=== PATIENT | male | born 1980 | race Caucasian/White ===

== ENCOUNTER 2020-07-29 20:01 | Inpatient (IN) | payer MEDICAID, OTHER ==
--- NOTE | 2020-07-29 20:11 | ED ---
General Adult HPI - General Chief complaint: Psychiatric Symptoms Stated complaint: mental health Time Seen by Provider: 07/29/20 20:09 Source: patient, police Mode of arrival: ambulatory - History of Present Illness Initial comments: Patient brought to the ED by police for evaluation. Patient states that his filed for divorce a couple of days ago, and he states that he has felt depressed and has had suicidal ideations ever since then. Patient states that he has had thoughts of hanging himself, but he denies suicidal attempt. Patient has been petitioned. Patient denies psychiatric history. Patient admits to smoking marijuana fairly regularly, and he states that he did smoke some marijuana today. Patient denies any other illicit drug use. Patient denies alcohol use. Patient denies trauma or injury, medication abuse or overdose, homicidal ideations, hallucinations, any pain, dyspnea, dizziness, fever or chills, nausea or vomiting, or any other symptoms or complaints. - Related Data Home Medications Medication Instructions Recorded Confirmed No Known Home Medications 07/29/20 07/29/20 Allergies Allergy/AdvReac Type Severity Reaction Status Date / Time Tetanus Vaccines and Toxoid Allergy Rash/Hives Verified 07/29/20 21:19 Review of Systems ROS Statement: Those systems with pertinent positive or pertinent negative responses have been documented in the HPI. ROS Other: All systems not noted in ROS Statement are negative. Past Medical History Past Medical History: Deep Vein Thrombosis (DVT) History of Any Multi-Drug Resistant Organisms: None Reported Past Surgical History: No Surgical Hx Reported Past Psychological History: No Psychological Hx Reported Smoking Status: Former smoker Past Alcohol Use History: None Reported Past Drug Use History: Marijuana General Exam Limitations: no limitations General appearance: alert, in no apparent distress Head exam: Present: atraumatic, normocephalic Eye exam: Present: normal appearance, EOMI ENT exam: Present: mucous membranes moist Neck exam: Present: other (Trachea is in midline) Respiratory exam: Present: normal lung sounds bilaterally. Absent: respiratory distress, wheezes, rales, rhonchi, stridor Cardiovascular Exam: Present: regular rate, normal rhythm, normal heart sounds, other (Normal radial pulses bilaterally) GI/Abdominal exam: Present: soft. Absent: distended, tenderness, guarding Extremities exam: Absent: tenderness, pedal edema Neurological exam: Present: alert, oriented X3. Absent: motor sensory deficit Psychiatric exam: Present: depressed Skin exam: Present: warm, dry, intact, normal color Course Vital Signs 07/29/20 20:06 Temperature 98.7 F Pulse Rate 84 Respiratory 18 Rate Blood Pressure 116/99 O2 Sat by Pulse 98 Oximetry Medical Decision Making - Medical Decision Making Patient has been placed by EPS nurse at the psychiatric unit upstairs. - Lab Data Lab Results 07/29/20 Range/Units 21:21 Coronavirus (PCR) Not Detected (Not Detectd) Disposition Clinical Impression: Suicidal ideation Disposition: TRANSFER TO PSYCH HOSP/UNIT Condition: Stable Is patient prescribed a controlled substance at d/c from ED?: No Time of Disposition: 22:28
[2020-07-29] MEDS ORDERED: MAG HYDROX/AL HYDROX/SIMETH 30 ML CUP PO PRN (22:23)
[2020-07-29] MEDS ORDERED: ACETAMINOPHEN TAB 325 MG TAB PO PRN (22:23)
[2020-07-29] MEDS ORDERED: LORazepam 1 MG TAB PO PRN (22:23)
[2020-07-29] MEDS ORDERED: MAGNESIUM HYDROXIDE 2,400 MG/10 ML CUP PO PRN (22:23)
[2020-07-29] MEDS ORDERED: haloperidoL 5 MG TAB PO PRN (22:26)
[2020-07-30 07:38] LABS: Basophils # (A) 0.1 k/uL (0-0.2); Basophils % (A) 1 %; Eosinophils # (A) 0.3 k/uL (0-0.7); Eosinophils % (A) 4 %; HCT 48.6 % (39.0-53.0); HGB 16.4 gm/dL (13.0-17.5); Lymphocytes # (A) 1.4 k/uL (1.0-4.8); Lymphocytes % (A) 21 %; MCH 28.2 pg (25.0-35.0); MCHC 33.7 g/dL (31.0-37.0); MCV 83.8 fL (80.0-100.0); Mean Platelet Volume 6.7; Monocytes # (A) 0.5 k/uL (0-1.0); Monocytes % (A) 8 %; Neutrophils # (A) 4.3 k/uL (1.3-7.7); Neutrophils % (A) 64 %; Platelet Count 248 k/uL (150-450); RDW 12.9 % (11.5-15.5); WBC 6.7 k/uL (3.8-10.6)
[2020-07-30 08:00] LABS: ALT 53 U/L (4-49); AST 55 U/L (17-59); African American GFR (CKD) >90 (>60 ml/min/1.73 sqM); Albumin 4.5 g/dL (3.5-5.0); Alkaline Phosphatase 57 U/L (38-126); Anion Gap 5 mmol/L; Blood Urea Nitrogen 16 mg/dL (9-20); Calcium 9.5 mg/dL (8.4-10.2); Carbon Dioxide 30 mmol/L (22-30); Chloride 107 mmol/L (98-107); Cholesterol 190 mg/dL (<200); Glucose 107 mg/dL (74-99); HDL Cholesterol 46 mg/dL (40-60); LDL Cholesterol,Calculated 125 mg/dL (0-99); Non-African American GFR(CKD) 88 (>60 ml/min/1.73 sqM); Potassium 4.1 mmol/L (3.5-5.1); Sodium 142 mmol/L (137-145); Total Bilirubin 1.2 mg/dL (0.2-1.3); Total Protein 7.4 g/dL (6.3-8.2); Triglycerides 95 mg/dL (<150)
[2020-07-30] MEDS ORDERED: NICOTINE 14MG/24HR PATCH TRANSDERM SCH (09:00)
--- NOTE | 2020-07-30 11:40 | P.HP ---
Psychiatric H&P - . H&P Date: 07/30/20 History & Physical: Allergies Allergy/AdvReac Type Severity Reaction Status Date / Time Tetanus Vaccines and Toxoid Allergy Rash/Hives Verified 07/29/20 21:19 Vital Signs Temp 97.3 F L 07/30/20 06:24 Pulse 60 07/30/20 06:24 Resp 18 07/30/20 06:24 BP 132/69 07/30/20 06:24 Pulse Ox 97 07/29/20 22:59 Intake & Output 07/29/20 07/30/20 07/30/20 18:59 06:59 18:59 Weight 128.3 kg Laboratory Last Values WBC 6.7 k/uL (3.8-10.6) 07/30/20 07:09 RBC 5.80 m/uL (4.30-5.90) 07/30/20 07:09 Hgb 16.4 gm/dL (13.0-17.5) 07/30/20 07:09 Hct 48.6 % (39.0-53.0) 07/30/20 07:09 MCV 83.8 fL (80.0-100.0) 07/30/20 07:09 MCH 28.2 pg (25.0-35.0) 07/30/20 07:09 MCHC 33.7 g/dL (31.0-37.0) 07/30/20 07:09 RDW 12.9 % (11.5-15.5) 07/30/20 07:09 Plt Count 248 k/uL (150-450) 07/30/20 07:09 MPV 6.7 07/30/20 07:09 Neutrophils % 64 % 07/30/20 07:09 Lymphocytes % 21 % 07/30/20 07:09 Monocytes % 8 % 07/30/20 07:09 Eosinophils % 4 % 07/30/20 07:09 Basophils % 1 % 07/30/20 07:09 Neutrophils # 4.3 k/uL (1.3-7.7) 07/30/20 07:09 Lymphocytes # 1.4 k/uL (1.0-4.8) 07/30/20 07:09 Monocytes # 0.5 k/uL (0-1.0) 07/30/20 07:09 Eosinophils # 0.3 k/uL (0-0.7) 07/30/20 07:09 Basophils # 0.1 k/uL (0-0.2) 07/30/20 07:09 Sodium 142 mmol/L (137-145) 07/30/20 07:09 Potassium 4.1 mmol/L (3.5-5.1) 07/30/20 07:09 Chloride 107 mmol/L (98-107) 07/30/20 07:09 Carbon Dioxide 30 mmol/L (22-30) 07/30/20 07:09 Anion Gap 5 mmol/L 07/30/20 07:09 BUN 16 mg/dL (9-20) 07/30/20 07:09 Creatinine 1.07 mg/dL (0.66-1.25) 07/30/20 07:09 Est GFR (CKD-EPI)AfAm >90 (>60 ml/min/1.73 sqM) 07/30/20 07:09 Est GFR (CKD-EPI)NonAf 88 (>60 ml/min/1.73 sqM) 07/30/20 07:09 Glucose 107 mg/dL (74-99) H 07/30/20 07:09 Calcium 9.5 mg/dL (8.4-10.2) 07/30/20 07:09 Total Bilirubin 1.2 mg/dL (0.2-1.3) 07/30/20 07:09 AST 55 U/L (17-59) 07/30/20 07:09 ALT 53 U/L (4-49) H 07/30/20 07:09 Alkaline Phosphatase 57 U/L (38-126) 07/30/20 07:09 Total Protein 7.4 g/dL (6.3-8.2) 07/30/20 07:09 Albumin 4.5 g/dL (3.5-5.0) 07/30/20 07:09 Triglycerides 95 mg/dL (<150) 07/30/20 07:09 Cholesterol 190 mg/dL (<200) 07/30/20 07:09 LDL Cholesterol, Calc 125 mg/dL (0-99) H 07/30/20 07:09 HDL Cholesterol 46 mg/dL (40-60) 07/30/20 07:09 TSH 3.370 mIU/L (0.465-4.680) 07/30/20 07:09 Coronavirus (PCR) Not Detected (Not Detectd) 07/29/20 21:21 07/30/20 11:28 IDENTIFYING DATA: Patient is a , unemployed, 40-year-old male was admitted for suicidal ideation plan to hang himself in the context of marital stressors. HPI: Patient presented to the hospital by police on 07/29/2020 for psychiatric evaluation due to threatening to commit suicide by hang himself. As per petition completed by the child support case officer, the patient stated he was suicidal and was making statements. He sent text messages to his of her rope he bought to hang himself. The patient expresses that this all began 3 days ago when his told him she was unhappy and was filing for divorce. The patient states that he became very upset, and threatened his [id number]-[id number] and then threatened to hang himself. He expresses significant regret over his actions. He states prior to 3 days ago, the patient has not been experiencing any significant symptoms of mental illness. He states that since being informed of the divorce, he has been endorsing increased guilt, shame, anger, and has not been eating or sleeping. He vehemently denies any suicidal or homicidal ideation, intention, and/or plan. He states that the plan with the rope was just to make his upset and to get her attention. He states that he feels stupid for threatening to harm himself. He vehemently denies any intention to go forward with hurting himself. He denies wrapping the rope around his neck. He denies any prior attempts at suicide or self-harm. The patient does not endorse any significant symptoms or history of santos/hypomania. He does have a history of legal issues stemming from an illegal concealed weapon as well as damage to her a police vehicle. He denies any history of increased goal-directed behavior, grandiosity, or periods of excessive energy.. He reports no auditory or visual hallucinations. He denies any significant history of trauma. Regards to substance use, the patient only reports marijuana use. He states he smokes about 1 ounce of marijuana per week. He denies any tobacco, alcohol, or illicit drug use. PAST PSYCHIATRIC HISTORY: The patient says that he has never been diagnosed with any mental illness previously. He denies any prior trials of psychotropic medications. Patient denies any previous psychiatric hospitalizations. Patient denies any psychiatric outpatient follow-up. Patient denies any history of suicide attempts in the past. PMH: DVT ALLERGIES: Tetanus vaccines and toxoid CHEMICAL DEPENDENCY HISTORY: Patient smokes 1 ounce of marijuana per week. He denies any tobacco, alcohol, or illicit drug use. FAMILY PSYCHIATRIC/SUBSTANCE USE HISTORY: Patient reports that his father used to be an alcoholic. He denies any other family history of substance use or psychiatric illness. SOCIAL HISTORY: Patient was born in [place], [place] and was raised in [place]. His father 3 years ago in an ice fishing accident. His one sister who lives with his mother. Prior to this admission, the patient was living with his Guillermina, his in-laws, and his 9-month-old son Jimi. The patient also has a 10-year-old son named Georges from a previous relationship. 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 He does state that his in-laws want him out of the house but that legally he cannot be evicted at this time. He reports a middle school grade education. MENTAL STATUS EXAM: General Appearance: Patient appears to be stated age is alert, directable, and attempts to cooperate. Patient appears to have good hygiene and grooming. Patient has does tattoos spacers for earrings. Behavior: Patient is seated without any agitated behavior. Psychomotor activity appears normal. Speech: Patient's speech is fluent and nonpressured. Mood/Affect: Patient reports their mood is embarrassed, affect is congruent and with appropriate range. Suicidality/Homicidality: Patient vehemently denies any suicidal or homicidal ideation, intention, and/or plan. Perceptions: Patient denies any auditory or visual hallucinations. Though content/process: There is no evidence of any delusional thought content and thought process is linear and goal-directed. Memory and concentration: AOX3, grossly intact for the purposes of this session. Can spell "WORLD" backwards Judgment and insight: Fair STRENGTHS/WEAKNESSES: Patient has stable housing, stable income, and no significant history of psychiatric illness. Weakness is that patient is undergoing a divorce and is currently unemployed. INTELLECT: average IMPRESSIONS: Adjustment disorder, with depressed and anxious features Cannabis use disorder PLAN: -Patient is admitted under involuntary status to [facility]HU for stabilization of psychiatric symptoms and safety. Patient was converted to voluntary status as he is willing to undergo treatment and to follow-up with outpatient appointments. Patient signed adult voluntary form and medication consent and is placed in patient's chart. -Medications : Will hold medications at this time. -Patient signed a release of information for his "Guillermina." Safety planning including discussions with the patient's family meeting to occur prior to discharge. -Ativan and Haldol PRN for agitation/aggression -Patient was counselled on substance abuse and desired to cut back on use -Internal Medicine consult to perform medical evaluation and physical. -SW on board for discharge planning. Encourage patient to participate in groups to work on coping skills.
[2020-07-30] MEDS ORDERED: IBUPROFEN 400 MG TAB PO PRN (12:19)
--- NOTE | 2020-07-30 12:59 | P.CONS ---
History of Present Illness - Reason for Consult Medical clearance - History of Present Illness Patient is a pleasant other 40-year-old male was admitted to psychiatric floor for his psychiatric issues. Patient denied any fever chills nausea vomiting although patient the has caries occasionally has pain in the left mandibular area. Hepatitis Racheal stool. Patient has couple caries tooth the left lower. Patient also has mild swelling in the inside of the cheek where he has tooth infection. Although this is not an abscess patient was treated for abscess in the past with antibiotics. Review of Systems REVIEW OF SYSTEMS: CONSTITUTIONAL: No fever, no malaise, no fatigue. HEENT: No recent visual problems or hearing problems. Denied any sore throat. CARDIOVASCULAR: No chest pain, orthopnea, PND, no palpitations, no syncope. PULMONARY: No shortness of breath, no cough, no hemoptysis. GASTROINTESTINAL: No diarrhea, no nausea, no vomiting, no abdominal pain. NEUROLOGICAL: No headaches, no weakness, no numbness. HEMATOLOGICAL: Denies any bleeding or petechiae. GENITOURINARY: Denies any burning micturition, frequency, or urgency. MUSCULOSKELETAL/RHEUMATOLOGICAL: Denies any joint pain, swelling, or any muscle pain. ENDOCRINE: Denies any polyuria or polydipsia. The rest of the 14-point review of systems is negative. Past Medical History Past Medical History: Deep Vein Thrombosis (DVT) History of Any Multi-Drug Resistant Organisms: None Reported Past Surgical History: No Surgical Hx Reported Smoking Status: Never smoker Medications and Allergies Home Medications Medication Instructions Recorded Confirmed Type No Known Home Medications 07/29/20 07/29/20 History Allergies Allergy/AdvReac Type Severity Reaction Status Date / Time Tetanus Vaccines and Toxoid Allergy Rash/Hives Verified 07/29/20 21:19 Physical Exam Vitals: Vital Signs Temp Pulse Pulse Resp BP BP Pulse Ox 07/30/20 11:32 97.6 F 07/30/20 06:24 97.3 F L 60 18 132/69 07/29/20 22:59 99.3 F 114 H 18 141/93 97 07/29/20 20:06 98.7 F 84 18 116/99 98 Intake and Output 07/29/20 07/30/20 07/30/20 22:59 06:59 14:59 Other: Weight 128.3 kg PHYSICAL EXAMINATION: GENERAL: The patient is alert and oriented x3, not in any acute distress. Well developed, well nourished. HEENT: Pupils are round and equally reacting to light. EOMI. No scleral icterus. No conjunctival pallor. Normocephalic, atraumatic. No pharyngeal erythema. No thyromegaly. Patient had a to infected tooth in the left lower GI along with small swelling on the chest she inside of the oral cavity where he has infected and sharp molar. This swelling appears to be chronic. CARDIOVASCULAR: S1 and S2 present. No murmurs, rubs, or gallops. PULMONARY: Chest is clear to auscultation, no wheezing or crackles. ABDOMEN: Soft, nontender, nondistended, normoactive bowel sounds. No palpable organomegaly. MUSCULOSKELETAL: No joint swelling or deformity. EXTREMITIES: No cyanosis, clubbing, or pedal edema. NEUROLOGICAL: Gross neurological examination did not reveal any focal deficits. SKIN: No rashes. Results CBC & Chem 7: 07/30/20 07:09 07/30/20 07:09 Labs: Abnormal Lab Results - Last 24 Hours (Table) 07/30/20 Range/Units 07:09 Glucose 107 H (74-99) mg/dL ALT 53 H (4-49) U/L LDL Cholesterol, Calc 125 H (0-99) mg/dL Assessment and Plan Plan: -Caries tooth: Patient doesn't appear to have any significant abscess at this time although if his pain in the left lower GI area worsens patient will need antibiotics at that time for now I recommended warm compresses and anti- inflammatory medication patient was started on anti-inflammatory medication. Considering his kidney function being borderline and order a basic metabolic profile as he is receiving Motrin. -Callus, chronic swelling in the mucosal aspect of the left cheek: This is secondary to infected molar which is sharp impinging on the cheek causing some chronic changes without an abscess at this time and do not believe patient will need antibiotics patient will need evaluation by a dentist upon discharge. Patient molar need to come out. -Possible parotitis mostly inflammatory rather infectious warm compresses as mentioned above and if needed patient will be started on antibiotics as of do not believe he'll need any antibiotics -Psychiatric disorder, adjustment disorder: Management per primary service
[2020-07-30 13:47] LABS: Hemoglobin A1C 5.5 % (4.0-6.0)
[2020-07-30] MEDS: FAMOTIDINE 20 MG TAB PO SCH (20:57)
[2020-07-31 07:05] LABS: African American GFR (CKD) >90 (>60 ml/min/1.73 sqM); Anion Gap 7 mmol/L; Blood Urea Nitrogen 15 mg/dL (9-20); Calcium 9.6 mg/dL (8.4-10.2); Carbon Dioxide 29 mmol/L (22-30); Chloride 106 mmol/L (98-107); Glucose 104 mg/dL (74-99); Non-African American GFR(CKD) 90 (>60 ml/min/1.73 sqM); Potassium 4.5 mmol/L (3.5-5.1); Sodium 142 mmol/L (137-145)
[2020-07-31] MEDS: FAMOTIDINE 20 MG TAB PO SCH ×2 (09:02→21:01)
--- NOTE | 2020-07-31 10:58 | P.PN ---
Progress Note - Text Progress Note Date: 07/31/20 Clinical Problems: Suicidal ideation, adjustment disorder with disturbance of mood and behavior, marital conflict involving divorce, Cannabis use disorder Interim history: I reviewed the medical record, interviewed the patient and discussed his treatment and treatment plan during team meeting. He is a 40-year-old male admitted to the psychiatric unit voluntarily. A launch commander [place] police brought him to the [facility] and completed the petition because the patient had made suicidal statements. He sent his a picture of a rope and text that he wanted to use rope to hang himself. He was distressed because 3 days prior his requested a divorce. He did not want a divorce and alleged that he thought she would change her mind if she knew that he was suicidal at the thought of "losing her". During our interview she denied having wishes, suicidal ideation, intent or plan. He denied that he intended to hurt himself. He repeatedly stated that he regrets his actions and now realizes that it has made his less likely to consider a reconciliation. He requested to be discharged. He remains distressed about the divorce but denies feeling persistently depressed or experiencing overwhelming uncontrollable anxiety. He denied such psychotic symptoms as hallucinations, paranoia or confusion. He denied use of drugs with the exception of marijuana but has not supposedly urine sample for urine drug screen. She is attended to therapeutic groups and activities. The therapist described him as logical, organized, attentive and appropriate. Medical consult appreciated. Mental status exam: He presented as a moderately obese tall 40-year-old male with multiple tattoos. He made eye contact and attended to the interview. He had no prominent physical abnormalities. He had a blunted facial expression and cried briefly during the interview. He was alert and oriented to person, place and time. He showed psychomotor retardation but no abnormal involuntary movements. His speech was spontaneous with normal rate and rhythm. His affect was depressed and unreactive. He denied suicidal ideation and wishes. He denied homicidal ideation. He did not expressed depressive cognitions such as hopelessness, helplessness or worthlessness. He ruminated over his marriage, the reasons for his requesting a divorce and his children. He did not express phobias, ideas reference, paranoid ideation and delusions. His thinking was abstract and associations were organized and goal directed. He denied hallucinations did not appear to be responding to internal stimuli. Assessment: His reason for admission appears to be poor adjustment to a pending divorce. His judgment may have been also clouded by his chronic marijuana use. He is denying use of other drugs but is not submitted a urine sample for testing. The rotary dump operator noted that he has very poor dentition. Plan: Continue inpatient. Safety precautions. Encourage him to provide a sample for urine testing. There is no current indication for an antidepressant medication. He would benefit from referral for individual therapy and will need assistance with housing referrals prior to discharge. Continue Haldol and Ativan when necessary for agitation or aggression. Encourage participation in therapeutic groups and activities. Evaluate clinical status response to treatment daily basis.
[2020-08-01 06:28] VITALS: BP 131/80; PULSE 62; RESP 15; TEMP 97.7
[2020-08-01] MEDS: FAMOTIDINE 20 MG TAB PO SCH (07:58)
--- NOTE | 2020-08-01 10:59 | P.DS ---
Providers Date of admission: 07/29/20 22:18 Attending physician: Trent Ray MD Consults: 07/29/20 22:23 Consult Physician Routine Consulting Provider: Tree Gilbert Consult Reason/Comments: medical management Do you want consulting provider notified?: Yes Primary care physician: Jean Lara - Discharge Diagnosis(es) (1) Suicidal ideation Current Visit: Yes Status: Resolved Priority: Low (2) Adjustment disorder with mixed disturbance of emotions and conduct Current Visit: Yes Status: Acute Priority: Medium (3) Marital conflict involving divorce Current Visit: Yes Status: Acute Priority: High (4) Cannabis use disorder, mild, abuse Current Visit: Yes Status: Chronic Priority: Low Hospital Course: HISTORY: He is a 40-year-old male admitted to the psychiatric unit voluntarily. A police matron brought him to the Medical Center and completed the petition because the patient had made suicidal statements. He sent his a picture of a rope and text that he wanted to use rope to hang himself. He was distressed because 3 days prior his requested a divorce. He did not want a divorce and alleged that he thought she would change her mind if she knew that he was suicidal at the thought of "losing her". He denied that he intended to hurt himself. He repeatedly stated that he regrets his actions and now realizes that it has made his less likely to consider a reconciliation. He is no history of mental health treatment. He is had no prior psychiatric hospitalizations. HOSPITAL COURSE: We admitted him to the psychiatric unit voluntarily under the care of this database report writer. We provided a comprehensive biopsychosocial assessment. The network security consultant business development director completed initial physical exam and medical history and diagnosis caries, callus and possible parotitis. The business development director recommended Motrin for pain and evaluation by a dentist after discharge. The patient persistent and uncontrollable anxiety or persistent depression. After admission to the unit the level of his distress decreased substantially. There is no indication for prescription of antidepressant medication. He repeatedly denied wishes or suicidal ideation, intent or plan. He talked about how he regreted his actions that led to this hospitalization. He spoke with his on the telephone. He stated the telephone call was cordial and productive. She maintains her decision to file for a divorce but assured him that he would be involved with his son. He also spoke with his sister who agreed to allow him to live with her and his mother temporarily until he receives no unemployment check. MENTAL STATUS ON DISCHARGE: At the time of discharge she presented as a moderately obese casually groomed 40-year-old male who was pleasant on approach. He made eye contact and attended to the interview. He had a large ring on his left ear and several tattoos but no physical abnormalities. He had a bright facial expression. He is alert and oriented to person, place and time. He showed no abnormality of psychomotor activity. His speech was spontaneous with normal rate, rhythm and volume. His affect was bright, stable and appropriate. He denied suicidal ideation and wishes. He denied homicidal ideation. He denied feeling hopeless, helpless and worthless. He did not express ideas reference, paranoid ideation or delusions. His thinking was abstr act and his associations were coherent, logical and goal directed. He denied hallucinations and did not appear to be responding to internal stimuli. DISPOSITION: He will live with his sister and mother temporarily until he is able to afford his own housing. He has no discharge medications. [facility]. Patient Condition at Discharge: Stable Plan - Discharge Summary Discharge Rx Participant: No New Discharge Prescriptions: No Action No Known Home Medications Discharge Medication List No Known Home Medications 07/29/20 [History] Follow up Appointment(s)/Referral(s): [facility] - 08/08/20 12:30 pm ([id number] appointment 08/08/20 at 12:30 pm with Rossy Mendosa.) Marco Pena MD [Primary Care Provider] - 1-2 days Activity/Diet/Wound Care/Special Instructions: Activity and diet as tolerated. Avoid the use of street drugs and alcohol. Take all medications as prescribed. When you are in need of refills on your medications please contact your medical provider and/or outpatient psychiatrist to have this done. Please go to scheduled outpatient appointment for aftercare treatment. If symptoms return or become worse, call the crisis line at and/or go to the nearest emergency room for evaluation. Discharge Disposition: HOME SELF-CARE
== END 2020-08-01 12:52 | disposition home or self-care (01) | DRG 882 ==
LOC: EC 20:01 → 3MHU 22:18
PROVIDERS: ADMIT Psychiatry & Neurology Psychiatry; ATTEND Psychiatry & Neurology Psychiatry
DX: F43.25 Adjustment disorder with mixed disturbance of emotions and conduct (principal); R45.851 Suicidal ideations; F32.9 Major depressive disorder, single episode, unspecified; F12.10 Cannabis abuse, uncomplicated; F41.9 Anxiety disorder, unspecified; K02.9 Dental caries, unspecified; K04.7 Periapical abscess without sinus; Z87.891 Personal history of nicotine dependence; Z20.828 Contact with and (suspected) exposure to other viral communicable diseases
CPT/HCPCS: 80048; 80053; 80061; 82075; 83036; 84443; 85025; 87635; 99285

== ENCOUNTER 2020-08-17 21:15 | Emergency (ER) | payer OTHER ==
[2020-08-17 21:20] VITALS: BP 157/94; PULSE 90; RESP 20; TEMP 99
[2020-08-17] MEDS ORDERED: DIAZEPAM 5 MG/ML 2 ML INJ IM ONE (21:35)
[2020-08-17] MEDS ORDERED: KETOROLAC 15 MG/ML 1 ML VIAL IM STA (21:35)
--- NOTE | 2020-08-17 21:59 | XR ---
PROCEDURE: XR Hip RT and AP Pelvis - 4V DATE AND TIME: 08/17/2020 9:54 PM CLINICAL INDICATION: PHH; Pain right hip after slip on ice TECHNIQUE: Department protocol COMPARISON: None FINDINGS: There is no fracture or malalignment. The soft tissues are unremarkable. IMPRESSION: NO ACUTE PROCESS.
--- NOTE | 2020-08-17 22:01 | XR ---
PROCEDURE: XR lumbosacral spine - 5V DATE AND TIME: 08/17/2020 9:54 PM CLINICAL INDICATION: PHH; Slipped on ice, increased low back pain TECHNIQUE: Department protocol COMPARISON: None FINDINGS: There is no fracture or malalignment. The soft tissues are unremarkable. IMPRESSION: NO ACUTE PROCESS.
[2020-08-17] MEDS ORDERED: ACET/COD 300 MG/30 MG STARTER PACK 6 TAB BTL PO STA (22:26)
--- NOTE | 2020-08-17 22:27 | ED ---
General Adult HPI - General Source: patient, family Mode of arrival: wheelchair Limitations: no limitations <Elayne Bartholomew - Last Filed: 08/18/20 02:29> <Lulú Waters - Last Filed: 08/19/20 10:35> - General Chief complaint: Extremity Injury, Lower Stated complaint: Back/hip pain-Fall Time Seen by Provider: 08/17/20 21:23 - History of Present Illness Initial comments: 40-year-old male patient presents to the emergency department today for evaluation of low back pain with radiation to the right hip and down the right thigh. Patient states that a couple of days ago he slipped on the ice twisting his back. States he has a known herniated disc and is concerned he made this worse. Patient states that he has been resting and taking Tylenol without relief. States that the pain starts in the right low back radiates to the right hip and down the right anterior thigh to about the level. States he has o ccasional tingling to the right foot but denies any numbness. Denies any saddle anesthesia or loss of bowel or bladder control. Denies any fever or chills. He did not fall during the injury. Patient denies any recent rash, cough, shortness of breath, chest pain, abdominal pain, nausea, vomiting, diarrhea, constipation, dizziness, weakness, hematuria, dysuria, urinary urgency, urinary frequency, headache, visual changes, or any other complaints. (Elayne Bartohlomew) - Related Data Previous Rx's Medication Instructions Recorded Cyclobenzaprine [Flexeril] 10 mg PO TID #15 tab 08/17/20 Ibuprofen [Motrin] 600 mg PO Q8HR PRN #30 tab 08/17/20 Lidocaine 5% Patch [Lidoderm] 1 patch TOPICAL DAILY #30 patch 08/17/20 Allergies Allergy/AdvReac Type Severity Reaction Status Date / Time Tetanus Vaccines and Toxoid Allergy Rash/Hives Verified 08/17/20 21:21 Review of Systems ROS Other: All systems not noted in ROS Statement are negative. <Elayne Bartholomew - Last Filed: 08/18/20 02:29> ROS Other: All systems not noted in ROS Statement are negative. <Lulú Waters - Last Filed: 08/19/20 10:35> ROS Statement: Those systems with pertinent positive or pertinent negative responses have been documented in the HPI. Past Medical History Past Medical History: Deep Vein Thrombosis (DVT) History of Any Multi-Drug Resistant Organisms: None Reported Past Surgical History: No Surgical Hx Reported Past Psychological History: No Psychological Hx Reported Smoking Status: Never smoker Past Alcohol Use History: None Reported Past Drug Use History: Marijuana <Elayne Bartholomew M - Last Filed: 08/18/20 02:29> General Exam Limitations: no limitations General appearance: alert, in no apparent distress, other (This is a well- developed, well-nourished adult male patient in no acute distress. Vital signs upon presentation are temperature 99.0F, pulse 90, respirations 20, blood pressure 157/94, pulse ox 98% on room air.) Eye exam: Present: normal appearance, PERRL, EOMI. Absent: scleral icterus, conjunctival injection, periorbital swelling ENT exam: Present: normal exam, normal oropharynx, mucous membranes moist Respiratory exam: Present: normal lung sounds bilaterally. Absent: respiratory distress, wheezes, rales, rhonchi, stridor Cardiovascular Exam: Present: regular rate, normal rhythm, normal heart sounds. Absent: systolic murmur, diastolic murmur, rubs, gallop, clicks GI/Abdominal exam: Present: soft, normal bowel sounds. Absent: distended, tenderness, guarding, rebound, rigid Extremities exam: Present: normal inspection, full ROM, normal capillary refill, other (Skin to the lower extremities is pink, warm, dry. Cap refills less than 3 seconds. Pedal and post tibial pulses are 2+ and equal bilaterally). Absent: tenderness, pedal edema, joint swelling, calf tenderness Back exam: Present: normal inspection, paraspinal tenderness (right paralumbar). Absent: vertebral tenderness Neurological exam: Present: alert, oriented X3, CN II-XII intact, other (Plantar and dorsiflexion intact with and without resistance.) Expanded Motor strength exam: RLE: 5, LLE: 5 Psychiatric exam: Present: normal affect, normal mood Skin exam: Present: warm, dry, intact, normal color. Absent: rash <Elayne Bartholomew M - Last Filed: 08/18/20 02:29> Course Vital Signs 08/17/20 21:16 Temperature 99 F Pulse Rate 90 Respiratory 20 Rate Blood Pressure 157/94 O2 Sat by Pulse 98 Oximetry Medical Decision Making - Radiology Data Radiology results: report reviewed, image reviewed <Elayne Bartholomew - Last Filed: 08/18/20 02:29> <Lulú Waters - Last Filed: 08/19/20 10:35> - Medical Decision Making 40-year-old male patient presents to the emergency department today for evaluation of right low back pain with radiation to the right hip and down the anterior right thigh to about knee level. Physical examination did reveal right paralumbar tenderness. Good strength to lower extremities. Intact plantar and dorsiflexion. No concerning symptoms or cauda equina. He is afebrile normal vital signs. X-rays of the lumbosacral and hip and pelvis were obtained and were negative. He is given pain medication and muscle relaxer. Upon reevaluation is resting comfortably in bed. He is able to ambulate. He will be discharged home with pain medication and muscle relaxers. To be given Lidoderm patch. He is instructed to follow-up with his primary care physician for recheck in 1-2 days. Instructed to follow-up possibly follow-up with orthopedic claim benefit specialist. Return parameters were discussed in detail. He verbalizes understanding and agrees with this plan. (Elayne Bartholomew) I was available for consultation in the emergency department. The history and physical exam were done by the midlevel provider. I was consulted for this patients care. I reviewed the case with the midlevel provider and based on their presentation of the patient, I agree with the assessment, medical decision making and plan of care as documented. Chart was dictated using [employer] dictation software. Attempts were made to correct any dictation errors however some typographical errors may persist. Patient was seen during a national state of emergency due to the Covid-19 pandemic. (Lulú Waters) - Radiology Data 5 views of the lumbosacral spine were obtained. Report was reviewed in its entirety. Impression by Dr. eRji Landaverde shows no acute process. 4 views of the right hip and pelvis are obtained. Report is reviewed in its entirety. Impression by Dr. Reji Landaverde shows no acute process. (Elayne Bartholomew) Disposition Is patient prescribed a controlled substance at d/c from ED?: No Time of Disposition: 22:27 <Elayne Bartholomew - Last Filed: 08/18/20 02:29> <Lulú Waters - Last Filed: 08/19/20 10:35> Clinical Impression: Lumbar radiculopathy Disposition: HOME SELF-CARE Condition: Good Instructions (If sedation given, give patient instructions): Acute Low Back Pain (ED), Lumbar Radiculopathy (ED) Additional Instructions: Take medications as directed. Follow-up through primary care physician for recheck in 1-2 days. Follow-up with orthopedic specialty for further evaluation if necessary. Return to the emergency department for any new, worsening, or concerning symptoms. Prescriptions: Cyclobenzaprine [Flexeril] 10 mg PO TID #15 tab Lidocaine 5% Patch [Lidoderm] 1 patch TOPICAL DAILY #30 patch Ibuprofen [Motrin] 600 mg PO Q8HR PRN #30 tab PRN Reason: Pain Referrals: Marco Pena MD [Primary Care Provider] - 1-2 days
== END 2020-08-17 22:46 | disposition home or self-care (01) ==
LOC: EC 21:15
DX: M54.16 Radiculopathy, lumbar region (principal); Z88.7 Allergy status to serum and vaccine
CPT/HCPCS: 72110; 73502; 96372 ×2; 99283; J3360; J1885

== ENCOUNTER 2022-03-22 17:25 | Emergency (ER) | payer OTHER ==
[2022-03-22 17:36] VITALS: BP 159/89; PULSE 66; RESP 18; TEMP 97.9
--- NOTE | 2022-03-22 17:57 | ED ---
Psych HPI - General Chief Complaint: Psychiatric Symptoms Stated Complaint: Petition Time Seen by Provider: 03/22/22 17:44 Source: patient, police Mode of arrival: ambulatory - History of Present Illness Initial Comments: This patient is a 41-year-old man who is brought by police to have evaluation after he made suicidal statements. The patient states that he is going through a divorce with his currently. He states that an attempt to get her to stop with following divorce she stated that he would end his life if she went through with that. The patient states that this was this and I will threat he was trying to convince her to stop with the proceeding. He states that he is not truly feel suicidal. Complaint: suicidal ideation -: hour(s) Associated Psychiatric Symptoms: suicidal ideation Quality: resolved prior to arrival Improves With: none Worsens With: none - Related Data Home Medications Medication Instructions Recorded Confirmed No Known Home Medications 03/22/22 03/22/22 Allergies Allergy/AdvReac Type Severity Reaction Status Date / Time Tetanus Vaccines and Toxoid Allergy Rash/Hives Verified 03/22/22 18:55 Review of Systems ROS Statement: Those systems with pertinent positive or pertinent negative responses have been documented in the HPI. ROS Other: All systems not noted in ROS Statement are negative. Constitutional: Denies: fever, chills Respiratory: Denies: cough, dyspnea Cardiovascular: Denies: chest pain, palpitations, edema Gastrointestinal: Denies: abdominal pain, vomiting, diarrhea Musculoskeletal: Denies: back pain Skin: Denies: rash Neurological: Denies: headache Psychiatric: Reports: as per HPI. Denies: depression, auditory hallucinations, visual hallucinations, homicidal thoughts, suicidal thoughts Past Medical History Past Medical History: Deep Vein Thrombosis (DVT) History of Any Multi-Drug Resistant Organisms: None Reported Past Surgical History: No Surgical Hx Reported Additional Past Surgical History / Comment(s): vericose vein procedure Past Psychological History: No Psychological Hx Reported Smoking Status: Current every day smoker Past Alcohol Use History: None Reported Past Drug Use History: Marijuana General Exam Limitations: no limitations General appearance: alert, in no apparent distress Head exam: Present: atraumatic, normocephalic Eye exam: Present: normal appearance. Absent: scleral icterus, conjunctival injection Neck exam: Present: normal inspection Respiratory exam: Present: normal lung sounds bilaterally. Absent: respiratory distress, wheezes, rales, rhonchi, stridor Cardiovascular Exam: Present: regular rate, normal rhythm, normal heart sounds. Absent: systolic murmur, diastolic murmur, rubs, gallop GI/Abdominal exam: Present: soft. Absent: distended, tenderness, guarding, rebound, rigid, mass Extremities exam: Present: normal inspection, normal capillary refill. Absent: pedal edema, calf tenderness Back exam: Present: normal inspection. Absent: CVA tenderness (R), CVA tenderness (L) Neurological exam: Present: alert Psychiatric exam: Absent: depressed, agitated, anxious, flat affect, manic, homicidal ideation, suicidal ideation Skin exam: Present: warm, dry, intact, normal color. Absent: rash Course Vital Signs 03/22/22 17:32 Temperature 97.9 F Pulse Rate 66 Respiratory 18 Rate Blood Pressure 159/89 O2 Sat by Pulse 97 Oximetry Disposition Clinical Impression: Mood disorder Disposition: HOME SELF-CARE Condition: Good Instructions (If sedation given, give patient instructions): Mood Disorders (ED) Is patient prescribed a controlled substance at d/c from ED?: No Referrals: None,Stated [Primary Care Provider] - 1-2 days
== END 2022-03-22 21:16 | disposition home or self-care (01) ==
LOC: EC 17:25
DX: F39 Unspecified mood [affective] disorder (principal); Z88.7 Allergy status to serum and vaccine
CPT/HCPCS: 82075; 99284

== ENCOUNTER 2022-03-27 23:03 | Emergency (ER) | payer OTHER ==
[2022-03-27 23:21] VITALS: RESP 16; TEMP 98.2
[2022-03-27] MEDS ORDERED: dexAMETHasone 2 MG TAB PO STA (23:30)
[2022-03-27] MEDS ORDERED: HYDROmorphone 1 MG/ML 1 ML SYRINGE IM STA (23:30)
[2022-03-27] MEDS ORDERED: ETODOLAC 400 MG TAB PO STA (23:30)
--- NOTE | 2022-03-27 23:31 | ED ---
Back Pain HPI - General Chief Complaint: Extremity Injury, Lower Stated Complaint: Right hip pain Time Seen by Provider: 03/27/22 23:24 Source: patient, RN notes reviewed, old records reviewed Limitations: no limitations - History of Present Illness Initial Comments: This is a 41-year-old male to the emergency department for evaluation patient presents today for evaluation of severe right leg pain and right hip pain. Patient denies any specific chest triadic injury but is had persistent right leg and right hip pain in the patient's life. No new significant somatic injury is noted MD Complaint: other (Right hip pain) -: hour(s) Similar Symptoms Previously: Yes Place: home Radiation: right leg Severity: moderate Severity scale (1-10): 7 Quality: stabbing, aching Consistency: constant Improves With: none Worsens With: none Context: while lifting, turning/twisting, bending Associated Symptoms: denies other symptoms - Related Data Home Medications Medication Instructions Recorded Confirmed No Known Home Medications 03/22/22 03/22/22 Allergies Allergy/AdvReac Type Severity Reaction Status Date / Time Tetanus Vaccines and Toxoid Allergy Rash/Hives Verified 03/27/22 23:16 Review of Systems ROS Statement: Those systems with pertinent positive or pertinent negative responses have been documented in the HPI. ROS Other: All systems not noted in ROS Statement are negative. Past Medical History Past Medical History: Deep Vein Thrombosis (DVT) History of Any Multi-Drug Resistant Organisms: None Reported Past Surgical History: No Surgical Hx Reported Additional Past Surgical History / Comment(s): vericose vein procedure Past Psychological History: No Psychological Hx Reported Smoking Status: Former smoker Past Alcohol Use History: None Reported Past Drug Use History: Marijuana General Exam Limitations: no limitations General appearance: alert, in no apparent distress Head exam: Present: atraumatic, normocephalic, normal inspection Eye exam: Present: normal appearance, PERRL, EOMI. Absent: scleral icterus, conjunctival injection, periorbital swelling ENT exam: Present: normal exam, mucous membranes moist Neck exam: Present: normal inspection. Absent: tenderness, meningismus, lymphadenopathy Respiratory exam: Present: normal lung sounds bilaterally. Absent: respiratory distress, wheezes, rales, rhonchi, stridor Cardiovascular Exam: Present: regular rate, normal rhythm, normal heart sounds. Absent: systolic murmur, diastolic murmur, rubs, gallop, clicks GI/Abdominal exam: Present: soft, normal bowel sounds. Absent: distended, tenderness, guarding, rebound, rigid Extremities exam: Present: normal inspection, full ROM, normal capillary refill. Absent: tenderness, pedal edema, joint swelling, calf tenderness Back exam: Present: normal inspection, other (Right hip tenderness and pain pain with ambulation) Neurological exam: Present: alert, oriented X3, CN II-XII intact Psychiatric exam: Present: normal affect, normal mood Skin exam: Present: warm, dry, intact, normal color. Absent: rash Course Vital Signs 03/27/22 03/27/22 23:14 23:16 Temperature 98.3 F 98.2 F Pulse Rate 69 70 Respiratory 20 16 Rate Blood Pressure 157/105 148/96 O2 Sat by Pulse 98 96 Oximetry - Reevaluation(s) Reevaluation #1: 03/28/22 01:05 Medical record is reviewed Reevaluation #2: 03/28/22 02:19 Patient has pain control Reevaluation #3: 03/28/22 02:19 Patient informed of results and questions answered Medical Decision Making - Radiology Data Radiology results: report reviewed (X-rays did show possible right femur fracture, computed tomography scan shows normal right hip), image reviewed Disposition Clinical Impression: Right hip pain, Sciatica Disposition: HOME SELF-CARE Condition: Good Instructions (If sedation given, give patient instructions): Sciatica (ED) Is patient prescribed a controlled substance at d/c from ED?: No Referrals: Marc Dyer DO [Primary Care Provider] - 1-2 days Time of Disposition: 02:25
--- NOTE | 2022-03-28 00:48 | XR ---
EXAM: XR Right Hip With Pelvis When Performed, 2 or 3 Views CLINICAL HISTORY: ITS.REASON XR Reason: pain RIGHT HIP PAIN AFTER TWISTING WRONG TECHNIQUE: Two or three views of the right hip with pelvis when performed. COMPARISON: No relevant prior studies available. FINDINGS: Bones/joints: Small linear opacity along the lateral aspect of the right femoral neck on the AP right hip image only. No dislocation. Soft tissues: Unremarkable. IMPRESSION: Small linear opacity along the lateral aspect of the right femoral neck on the AP right hip image only. May be overlapping structures or possibly nondisplaced fracture. If further concern, consider CT/MRI.
--- NOTE | 2022-03-28 00:50 | XR ---
EXAM: XR Lumbosacral Spine, 2 or 3 Views CLINICAL HISTORY: ITS.REASON XR Reason: pain . RIGHT HIP PAIN AFTER TWISTING WRONG. TECHNIQUE: Frontal and lateral views of the lumbar spine and sacrum. COMPARISON: No relevant prior studies available. FINDINGS: Vertebrae: Unremarkable. No acute fracture. Normal alignment. Sacrum/coccyx: Unremarkable as visualized. No acute fracture. Disc spaces: No acute findings. No significant narrowing. Soft tissues: Unremarkable. IMPRESSION: No evidence of acute fracture or malalignment.
--- NOTE | 2022-03-28 02:14 | CT ---
EXAM: CT Right Lower Extremity Without Intravenous Contrast, Hip CLINICAL HISTORY: ITS.REASON CT Reason: pain RIGHT HIP PAIN AFTER TWISTING WRONG TECHNIQUE: Axial computed tomography images of the right hip without intravenous contrast. CTDI is 31.9 mGy and DLP is 1172.6 mGy-cm. This CT exam was performed using one or more of the following dose reduction techniques: automated exposure control, adjustment of the mA and/or kV according to patient size, and/or use of iterative reconstruction technique. COMPARISON: X-rays lumbar spine and pelvis/right hip 03/27/2022 FINDINGS: Bones/joints: Small subchondral cysts of the anterior and superior acetabulum. Few subchondral cysts of the posterior femoral head. Query mild focal posterior joint space narrowing. No acute fracture. No dislocation. Soft tissues: Unremarkable. Appendix: Normal appendix visualized. IMPRESSION: 1. No evidence of acute fracture or dislocation. 2. Small subchondral cysts of the anterior and superior acetabulum. Few subchondral cysts of the posterior femoral head. Query mild focal posterior joint space narrowing. May reflect mild degenerative changes.
[2022-03-28] MEDS ORDERED: IBUPROFEN 600 MG STARTER PACK 4 TAB BTL PO STA (02:20)
[2022-03-28] MEDS ORDERED: ACET/COD 300 MG/30 MG STARTER PACK 6 TAB BTL PO STA (02:20)
[2022-03-28 02:38] VITALS: BP 137/81; PULSE 78
== END 2022-03-28 02:38 | disposition home or self-care (01) ==
LOC: EC 23:03
DX: M25.551 Pain in right hip (principal); M54.30 Sciatica, unspecified side; Z87.891 Personal history of nicotine dependence; Z88.7 Allergy status to serum and vaccine
CPT/HCPCS: 72100; 73502; 99284; 96372; J1170; J8540

== ENCOUNTER → 2023-03-07 | Outpatient (CLI) | payer OTHER ==
--- NOTE | 2023-03-13 09:29 | MR ---
EXAMINATION TYPE: MR shoulder RT wo con DATE OF EXAM: 03/07/2023 COMPARISON: None HISTORY: Rt shoulder Fx TECHNIQUE: Multiplanar, multisequence imaging of the right shoulder is performed without contrast. FINDINGS: Rotator Cuff: There is abnormal thickening and signal seen throughout the distal margins of the supra spinatus and infraspinatus tendons compatible partial through the stairs. There are some residual fib ers with regard to the supraspinatus tendon at the attachment as well as posterior fibers of the infr aspinatus tendon attachment preserved. Subscapularis tendon appears to be intact to the level of the insertion where there is intrasubstance signal suggestive of a partial thickness tear. Note is made that there is increased signal within the substance of the subscapularis, supraspinatus, and infraspinatus muscle compatible with intramuscular strain. Acromioclavicular Joint: Mild edema seen within the distal clavicle and reactive confusion and trauma . Mild spurring and arthropathy with AC joint with mild flattening of the supraspinatus tendon and mu scle compatible with impingement. Glenohumeral Joint: Joint space mildly narrowed as is trace fluid within the joint space. Labrum: The labrum appears grossly intact given limitation of non-arthrogram study. Biceps Tendon: Biceps tendon appears to be situated within the bicipital groove with increased fluid surrounding the tendon compatible with tendinosis. The intracapsular portion of the tendon there is i ntrasubstance signal. With tear suspected. There is normal attachment of the biceps anchor. Bone marrow signal: There is edema and flattening of the humeral head compatible with infection fract ure. IMPRESSION: 1. Marrow edema flattening of the humeral head and greater tuberosity compatible with recent impacted fracture. 2. Near complete through thickness tears of the supraspinatus and infraspinatus tendons with minimal residual fibers seen at the attachment site for both tendons.. 3. Suspect a split tear in the intracapsular portion of the biceps tendon with bicipital tendinosis. 4. Partial through thickness tear insertion subscapularis tendon. No retraction. 5. Increased signal within the subscapularis, infraspinatus, and supraspinatus tendons compatible wit h intramuscular strain or reactive secondary to the altered biomechanics of rotator cuff tendon injur y. 6. AC joint arthropathy with impingement.
== END | disposition home or self-care (01) ==
LOC: RADMRIMAIN 19:12
PROVIDERS: ATTEND Orthopaedic Surgery
DX: M75.121 Complete rotator cuff tear or rupture of right shoulder, not specified as traumatic (principal); R60.0 Localized edema; M25.811 Other specified joint disorders, right shoulder

== ENCOUNTER 2023-07-14 11:44 | Emergency (ER) | payer OTHER ==
[2023-07-14] MEDS ORDERED: ACET/COD 300 MG/30 MG STARTER PACK 6 TAB BTL PO STA (12:44)
[2023-07-14] MEDS ORDERED: Acetaminophen-Codeine 300-30mg TAB PO STA (12:44)
[2023-07-14] MEDS ORDERED: KETOROLAC 15 MG/ML 1 ML VIAL IM STA (12:45)
--- NOTE | 2023-07-14 12:56 | ED ---
General Adult HPI - General Chief complaint: Dental/Oral Stated complaint: Dental pain Time Seen by Provider: 07/14/23 12:25 Source: patient, RN notes reviewed Mode of arrival: ambulatory Limitations: no limitations - History of Present Illness Initial comments: 43-year-old male presents emergency department chief complaining of right mandibular dental pain 2 days. Patient states that he did note some drainage from this area but this has since resolved. He states that his been taking ibuprofen and Tylenol for this with minimal relief. That he recently saw his dentist and had some teeth on the left side removed. He was told to call tomorrow morning to make an appointment to address the issues on the right. He denies fever, chills, nausea, vomiting. - Related Data Previous Rx's Medication Instructions Recorded Amoxic-Pot Clav 875-125Mg 1 tab PO Q12HR 7 Days #14 tab 07/14/23 [Augmentin 875-125] Allergies Allergy/AdvReac Type Severity Reaction Status Date / Time adhesive Allergy Rash/Hives Verified 07/14/23 12:03 Tetanus Vaccines and Toxoid Allergy Rash/Hives Verified 03/27/22 23:16 Review of Systems ROS Statement: Those systems with pertinent positive or pertinent negative responses have been documented in the HPI. ROS Other: All systems not noted in ROS Statement are negative. Past Medical History Past Medical History: Deep Vein Thrombosis (DVT) History of Any Multi-Drug Resistant Organisms: None Reported Past Surgical History: No Surgical Hx Reported Additional Past Surgical History / Comment(s): vericose vein procedure Past Psychological History: No Psychological Hx Reported Smoking Status: Former smoker Past Alcohol Use History: None Reported Past Drug Use History: Marijuana General Exam Limitations: no limitations General appearance: alert, in no apparent distress Head exam: Present: atraumatic, normocephalic, normal inspection Eye exam: Present: normal appearance, PERRL, EOMI. Absent: scleral icterus, conjunctival injection, periorbital swelling ENT exam: Present: normal oropharynx, mucous membranes moist, other (Fractured tooth and right lower dentition, no obvious swelling to the area) Neck exam: Present: normal inspection. Absent: tenderness, meningismus, lymphadenopathy Respiratory exam: Present: normal lung sounds bilaterally. Absent: respiratory distress, wheezes, rales, rhonchi, stridor Cardiovascular Exam: Present: regular rate, normal rhythm, normal heart sounds. Absent: systolic murmur, diastolic murmur, rubs, gallop, clicks Back exam: Present: normal inspection Neurological exam: Present: alert, oriented X3 Psychiatric exam: Present: normal affect, normal mood Skin exam: Present: warm, dry, intact, normal color. Absent: rash Course Vital Signs 07/14/23 07/14/23 12:00 12:54 Temperature 98.0 F 98.7 F Pulse Rate 80 72 Respiratory 16 18 Rate Blood Pressure 152/96 142/86 O2 Sat by Pulse 96 96 Oximetry Medical Decision Making - Medical Decision Making Was pt. sent in by a medical professional or institution (, DEVANTE, FULL TIME STAFF INTERPRETER, urgent care, hospital, or usp...) When possible be specific @ -No Did you speak to anyone other than the patient for history (EMS, parent, family, police, friend...)? What history was obtained from this source @ -No Did you review nursing and triage notes (agree or disagree)? Why? @ -I reviewed and agree with nursing and triage notes Were old charts reviewed (outside hosp., previous admission, EMS record, old EKG, old radiological studies, urgent care reports/EKG's, usp records)? Report findings @ -No old charts were reviewed Differential Diagnosis (chest pain, altered mental status, abdominal pain women, abdominal pain men, vaginal bleeding, weakness, fever, dyspnea, syncope, headache, dizziness, GI bleed, back pain, seizure, CVA, palpatations, mental health, musculoskeletal)? @ -dental infection, dental abscess, dental appliance issue, parotiditis, strep throat, this list is not all inclusive EKG interpreted by me (3pts min.). @ -None X-rays interpreted by me (1pt min.). @ -None done CT interpreted by me (1pt min.). @ -None done U/S interpreted by me (1pt. min.). @ -None done What testing was considered but not performed or refused? (CT, X-rays, U/S, labs)? Why? @ -None What meds were considered but not given or refused? Why? @ -None Did you discuss the management of the patient with other professionals (professionals i.e. , DEVANTE, FULL TIME STAFF INTERPRETER, lab, RT, psych nurse, bilingual social worker, batter out, teacher, dog license officer supervisor, rehabilitation caseworker)? Give summary @ -No Was smoking cessation discussed for >3mins.? @ -No Was critical care preformed (if so, how long)? @ -No Were there social determinants of health that impacted care today? How? (Homelessness, low income, unemployed, alcoholism, drug addiction, transportation, low edu. Level, literacy, decrease access to med. care, usp, rehab)? @ -No Was there de-escalation of care discussed even if they declined (Discuss DNR or withdrawal of care, Hospice)? DNR status @ -No What co-morbidities impacted this encounter? (DM, HTN, Smoking, COPD, CAD, Cancer, CVA, ARF, Chemo, Hep., AIDS, mental health diagnosis, sleep apnea, morbid obesity)? @ -None Was patient admitted / discharged? Hospital course, mention meds given and route, prescriptions, significant lab abnormalities, going to OR and other pertinent info. @ -Discharged. Patient presented to the emergency department for evaluation of right mandibular dental pain 2 days. Examination, there is no visible draina ble abscess, fractured tooth in right lower dentition., And minimal swelling to the right mandibular region. Vital signs stable. Patient given a dose of Toradol, Tylenol 3 and a Tylenol 3 starter pack to go home with. Prescription sent to patient's pharmacy for Augmentin. Patient will follow up with his dentist tomorrow. Patient understands agreeable plan. Patient is about to discharge. Case discussed with Dr. Addison Undiagnosed new problem with uncertain prognosis? @ -No Drug Therapy requiring intensive monitoring for toxicity (Heparin, Nitro, Insulin, Cardizem)? @ -No Were any procedures done? @ -No Diagnosis/symptom? @ -Dental abscess and dental pain Acute, or Chronic, or Acute on Chronic? @ -acute Uncomplicated (without systemic symptoms) or Complicated (systemic symptoms)? @ -uncomplicated Side effects of treatment? @ -No Exacerbation, Progression, or Severe Exacerbation? @ -No Poses a threat to life or bodily function? How? (Chest pain, [place], [place], pneumonia, PE, COPD, DKA, ARF, appy, cholecystitis, CVA, Diverticulitis, Homicidal, Suicidal, threat to staff... and all critical care pts) @ -No Disposition Clinical Impression: Pain, dental, Dental abscess Disposition: HOME SELF-CARE Condition: Stable Instructions (If sedation given, give patient instructions): Dental Abscess (ED) Additional Instructions: Please follow up with your dentist tomorrow. Return to the emergency department for new or worsening symptoms. Prescriptions: Amoxic-Pot Clav 875-125Mg [Augmentin 875-125] 1 tab PO Q12HR 7 Days #14 tab Is patient prescribed a controlled substance at d/c from ED?: No Referrals: Marc Dyer DO [Primary Care Provider] - 1-2 days
[2023-07-14 13:00] VITALS: BP 142/86; PULSE 72; RESP 18; TEMP 98.7
== END 2023-07-14 13:14 | disposition home or self-care (01) ==
LOC: EC 11:44
DX: K04.7 Periapical abscess without sinus (principal); F12.90 Cannabis use, unspecified, uncomplicated; Z88.7 Allergy status to serum and vaccine; Z91.09 Other allergy status, other than to drugs and biological substances; Z87.891 Personal history of nicotine dependence
CPT/HCPCS: 99283; 96372; J1885

== ENCOUNTER 2024-10-28 11:22 | Emergency (ER) | payer OTHER ==
[2024-10-28 11:36] VITALS: TEMP 98.1
--- NOTE | 2024-10-28 11:53 | ED ---
Abdominal Pain HPI - General Source: patient, RN notes reviewed Mode of arrival: ambulatory Limitations: no limitations <Jerry Bourne - Last Filed: 10/28/24 11:52> <Rayray Powers - Last Filed: 10/28/24 15:40> - General Chief Complaint: Abdominal Pain Stated Complaint: abd pain Time Seen by Provider: 10/28/24 11:36 - History of Present Illness Initial Comments: Quick note: This is a 44-year-old male presenting with abdominal pain (08/30) x 7 days. Patient endorses firmness/mass near right umbilicus with puckering bellybutton, which is a new occurrence for him. Patient endorses some pain radiating to right testy but denies change in testicular size or significant concern for testing itself. Patient endorses frequent heavy lifting at work but denies history of hernias. (Jerry Bourne) Dictation was produced using [employer] dictation software. please excuse any grammatical, word or spelling errors. Chief Complaint: 44-year-old male with several days of umbilical mass History of Present Illness: Patient is a 44-year-old male states that for the last 2 weeks he has felt a lump in his umbilical area. States that he is worried he is having a hernia. States that he does have some mild chills but denies any fevers. Patient denies any nausea vomiting. No diarrhea. No bloody stool. She did make a comment that he has intermittent episodes of right testicular pain that is associated with umbilical pain. However he is refusing testicular exam. The ROS documented in this emergency department record has been reviewed and confirmed by me. Those systems with pertinent positive or negative responses have been documented in the HPI. All other systems are other negative and/or noncontributory. (Rayray Powers) - Related Data Previous Rx's Medication Instructions Recorded Amoxic-Pot Clav 875-125Mg 1 tab PO Q12HR 7 Days #14 tab 07/14/23 [Augmentin 875-125] Allergies Allergy/AdvReac Type Severity Reaction Status Date / Time adhesive Allergy Rash/Hives Verified 10/28/24 11:36 Tetanus Vaccines and Toxoid Allergy Rash/Hives Verified 10/28/24 11:36 Review of Systems ROS Other: All systems not noted in ROS Statement are negative. <Jerry Bourne - Last Filed: 10/28/24 11:52> ROS Other: All systems not noted in ROS Statement are negative. <Rayray Powers - Last Filed: 10/28/24 15:40> ROS Statement: Those systems with pertinent positive or pertinent negative responses have been documented in the HPI. Past Medical History Past Medical History: Deep Vein Thrombosis (DVT), Hypertension History of Any Multi-Drug Resistant Organisms: None Reported Past Surgical History: No Surgical Hx Reported Additional Past Surgical History / Comment(s): vericose vein procedure Past Psychological History: No Psychological Hx Reported Smoking Status: Former smoker Past Alcohol Use History: None Reported Past Drug Use History: Marijuana <Jerry Bourne - Last Filed: 10/28/24 11:52> General Exam Limitations: no limitations <TaylaJerry - Last Filed: 10/28/24 11:52> <Rayray Powers - Last Filed: 10/28/24 15:40> - General Exam Comments Initial Comments: Visual Physical Exam Vital signs reviewed General: Well-appearing, nontoxic, no acute distress. Head: Normocephalic, atraumatic Eyes: PERRLA, EOMI ENT: Airway patent Chest: Nonlabored breathing Skin: No visual rash, normal skin tone Neuro: Alert and oriented 3 Musculoskeletal: No gross abnormalities (Jerry Bourne) PHYSICAL EXAM: General Impression: Alert and oriented x3, not in acute distress HEENT: Normocephalic atraumatic, extra-ocular movements intact, pupils equal and reactive to light bilaterally, mucous membranes moist. Cardiovascular: Heart regular rate and rhythm Chest: Able to complete full sentences, no retractions, no tachypnea Abdomen: abdomen soft, non-tender, non-distended, no organomegaly Musculoskeletal: Pulses present and equal in all extremities, no peripheral edema Motor: no focal deficits noted Neurological: CN II-XII grossly intact, no focal motor or sensory deficits noted Skin: Intact with no visualized rashes Psych: Normal affect and mood (Rayray Powers) Course Vital Signs 10/28/24 11:32 Temperature 98.1 F Pulse Rate 76 Respiratory 22 Rate Blood Pressure 173/95 O2 Sat by Pulse 98 Oximetry Medical Decision Making <Jerry Bourne - Last Filed: 10/28/24 11:52> - Lab Data Result diagrams: 10/28/24 12:45 10/28/24 12:45 <Rayray Powers - Last Filed: 10/28/24 15:40> - Medical Decision Making I completed the quick note portion of this chart signed ANGEL LUIS oLzano (Jerry Bourne) Was pt. sent in by a medical professional or institution (DEVANTE Cannon, MARKETING OPERATIONS ANALYST, urgent care, hospital, or senior care...) When possible be specific @ -No Did you speak to anyone other than the patient for history (EMS, parent, family, police, friend...)? What history was obtained from this source @ -No Did you review nursing and triage notes (agree or disagree)? Why? @ -I reviewed and agree with nursing and triage notes Were old charts reviewed (outside hosp., previous admission, EMS record, old EKG, old radiological studies, urgent care reports/EKG's, senior care records)? Report findings @ -No old charts were reviewed Differential Diagnosis (chest pain, altered mental status, abdominal pain women, abdominal pain men, vaginal bleeding, musculoskeletal, weakness, fever, dyspnea, syncope, headache, dizziness, GI bleed, back pain, seizure, CVA, palpatations, mental health)? @ -Differential Abdominal Pain Men: Appendicitis, cholecystitis, diverticulosis, ischemic bowel, pancreatitis, hepatitis, UTI, gastroenteritis, AAA, incarcerated hernia, bowel obstruction, constipation, inflammatory bowel, hepatitis, peptic ulcer disease, splenic infarction, perforated viscus, testicular torsion, this is not meant to be an all-inclusive list EKG interpreted by me (3pts min.). @ -None done X-rays interpreted by me (1pt min.). @ -None done CT interpreted by me (1pt min.). @ -CT abdomen pelvis shows fat-containing umbilical hernia U/S interpreted by me (1pt. min.). @ -None done What testing was considered but not performed or refused? (CT, X-rays, U/S, labs)? Why? @ -None What meds were considered but not given or refused? Why? @ -None Was smoking cessation discussed for >3mins.? @ -No Were there social determinants of health that impacted care today? How? (Home lessness, low income, unemployed, alcoholism, drug addiction, transportation, low edu. Level, literacy, decrease access to med. care, group home, rehab)? @ -No Was there de-escalation of care discussed even if they declined (Discuss DNR or withdrawal of care, Hospice)? DNR status @ -No What co-morbidities impacted this encounter? (DM, HTN, Smoking, COPD, CAD, Cancer, CVA, ARF, Chemo, Hep., AIDS, mental health diagnosis, sleep apnea, morbid obesity)? @ -None Was patient admitted / discharged? Hospital course, mention meds given and route, prescriptions, significant lab abnormalities, going to OR and other pertinent info. @ -44-year-old male presents emergency department with fat-containing ventral hernia seen on CT. Vital signs stable. No bowel contents in the hernia. Patient well-appearing given outpatient referral to general surgery. Did you discuss the management of the patient with other professionals (professionals i.e. , PA, MARKETING OPERATIONS ANALYST, lab, RT, psych nurse, adoption social worker, insurance loss assessor, teacher, flight radio officer, bilingual patient support caseworker)? Give summary @ -No Was critical care preformed (if so, how long)? @ -No Undiagnosed new problem with uncertain prognosis? @ -No Drug Therapy requiring intensive monitoring for toxicity (Heparin, Nitro, Insulin, Cardizem)? @ -No Were any procedures done? @ -No Diagnosis/symptom? Acute, or Chronic, or Acute on Chronic? Uncomplicated (without systemic symptoms) or Complicated (systemic symptoms)? @ -Umbilical hernia Side effects of treatment? @ -No Exacerbation, Progression, or Severe Exacerbation? @ -No Poses a threat to life or bodily function? How? (Chest pain, [place], [place], pneumonia, PE, COPD, DKA, ARF, appy, cholecystitis, CVA, Diverticulitis, Homicidal, Suicidal, threat to staff... and all critical care pts) @ -No (Rayray Powers) - Lab Data Lab Results 10/28/24 10/28/24 10/28/24 Range/Units 12:45 12:45 12:45 WBC 5.30 (4.50-10.00) 10*3/uL RBC 5.89 H (4.40-5.60) 10*6/uL Hgb 16.6 (13.0-17.0) g/dL Hct 49.6 (39.6-50.0) % MCV 84.2 (80.0-97.0) fL MCH 28.2 (27.0-32.0) pg MCHC 33.5 (32.0-37.0) g/dL Plt Count 232 (140-440) 10*3/uL MPV 9.5 (9.5-12.2) fL Immature Gran % (Auto) 0.2 % Neutrophils % 63.8 % Lymphocytes % 23.6 % Monocytes % 8.1 % Eosinophils % 3.2 % Basophils % 1.1 % Immature Gran # 0.01 (0.00-0.04) 10*3/uL Neutrophils # 3.38 (1.80-7.70) 10*3/uL Lymphocytes # 1.25 (0.90-5.00) 10*3/uL Monocytes # 0.43 (0.20-1.00) 10*3/uL Eosinophils # 0.17 (0.04-0.35) 10*3/uL Basophils # 0.06 (0.00-0.10) 10*3/uL Sodium 138 (137-145) mmol/L Potassium 4.9 (3.5-5.1) mmol/L Chloride 103 (98-107) mmol/L Carbon Dioxide 27 (22-30) mmol/L Anion Gap 8 mmol/L BUN 13 (9-20) mg/dL Creatinine 0.86 (0.66-1.25) mg/dL Est GFR (CKD-EPI)AfAm >90 (>60 ml/min/1.73 sqM) Est GFR (CKD-EPI)NonAf >90 (>60 ml/min/1.73 sqM) Glucose 100 H (74-99) mg/dL Plasma Lactic Acid Matt 1.0 (0.7-2.0) mmol/L Calcium 9.4 (8.4-10.2) mg/dL Total Bilirubin 0.6 (0.2-1.3) mg/dL AST 23 (17-59) U/L ALT 28 (4-49) U/L Alkaline Phosphatase 66 (38-126) U/L Total Protein 7.1 (6.3-8.2) g/dL Albumin 4.5 (3.5-5.0) g/dL Lipase 86 (23-300) U/L Disposition <Jerry Bourne - Last Filed: 10/28/24 11:52> Is patient prescribed a controlled substance at d/c from ED?: No Time of Disposition: 15:40 <Rayray Powers - Last Filed: 10/28/24 15:40> Clinical Impression: Umbilical hernia Disposition: HOME SELF-CARE Condition: Fair Instructions (If sedation given, give patient instructions): Umbilical Hernia (ED) Referrals: Joseph Nichols MD [STAFF PHYSICIAN] - 1-2 days
[2024-10-28 13:33] LABS: ALT 28 U/L (4-49); AST 23 U/L (17-59); African American GFR (CKD) >90 (>60 ml/min/1.73 sqM); Albumin 4.5 g/dL (3.5-5.0); Alkaline Phosphatase 66 U/L (38-126); Anion Gap 8 mmol/L; Blood Urea Nitrogen 13 mg/dL (9-20); Calcium 9.4 mg/dL (8.4-10.2); Carbon Dioxide 27 mmol/L (22-30); Chloride 103 mmol/L (98-107); Glucose 100 mg/dL (74-99); Lipase 86 U/L (23-300); Non-African American GFR(CKD) >90 (>60 ml/min/1.73 sqM); Potassium 4.9 mmol/L (3.5-5.1); Sodium 138 mmol/L (137-145); Total Bilirubin 0.6 mg/dL (0.2-1.3); Total Protein 7.1 g/dL (6.3-8.2)
[2024-10-28 13:56] LABS: Basophils # (A) 0.06 10*3/uL (0.00-0.10); Basophils % (A) 1.1 %; Eosinophils # (A) 0.17 10*3/uL (0.04-0.35); Eosinophils % (A) 3.2 %; HCT 49.6 % (39.6-50.0); HGB 16.6 g/dL (13.0-17.0); Lymphocytes # (A) 1.25 10*3/uL (0.90-5.00); Lymphocytes % (A) 23.6 %; MCH 28.2 pg (27.0-32.0); MCHC 33.5 g/dL (32.0-37.0); MCV 84.2 fL (80.0-97.0); Mean Platelet Volume 9.5 fL (9.5-12.2); Monocytes # (A) 0.43 10*3/uL (0.20-1.00); Monocytes % (A) 8.1 %; Neutrophils # (A) 3.38 10*3/uL (1.80-7.70); Neutrophils % (A) 63.8 %; Platelet Count 232 10*3/uL (140-440); RBC 5.89 10*6/uL (4.40-5.60)
--- NOTE | 2024-10-28 15:11 | CT ---
EXAMINATION TYPE: CT abdomen pelvis w con DATE OF EXAM: 10/28/2024 COMPARISON: None CLINICAL INDICATION: Male, 44 years old with history of Right umbilical mass, abdominal pain; PHH, Ri ght umbilical mass, abdominal pain. TECHNIQUE: Performed without Oral Contrast and with IV Contrast, patient injected with 100 ml mL of Isovue 300. CT DLP: 1949.[address] CTDI: mGy Automated exposure control for dose reduction was used. FINDINGS: The lung bases are clear. There is a single small gallstone but no wall thickening, distention or pericholecystic fluid.. There is no biliary ductal dilatation. There is no focal mass or organomegaly involving the liver, pancreas, spleen or adrenal glands. There is no solid renal mass or hydronephrosis and there is homogeneous contrast enhancement of the r enal parenchyma. The caliber the abdominal aorta is normal is no retroperitoneal adenopathy or hemorr ewelina. The bowel loops are normal in caliber and there is no evidence of dilatation or obstruction. No infla mmatory changes are identified in the bowel wall or mesentery. There is a 1.6 cm fat-containing periu mbilical hernia. There is no free intraperitoneal air or fluid. No pelvic mass, free fluid, abscess or adenopathy. The osseous structures and soft tissues are intact. IMPRESSION: 1. 1.6 cm fat-containing periumbilical hernia. 2. No acute changes within the abdomen or pelvis. 3. Mild cholelithiasis. [facility], , 10/28/2024 3:09 PM
[2024-10-28 15:51] VITALS: BP 154/80; PULSE 80; RESP 18
== END 2024-10-28 15:51 | disposition home or self-care (01) ==
LOC: EC 11:22
DX: K42.9 Umbilical hernia without obstruction or gangrene (principal); Z87.891 Personal history of nicotine dependence; Z88.7 Allergy status to serum and vaccine; Z91.018 Allergy to other foods
CPT/HCPCS: 36415; 80053; 83605; 83690; 85025; 74177; 99284; Q9967

== ENCOUNTER → 2024-12-08 | Outpatient (CLI) | payer OTHER ==
[2024-12-09 02:01] LABS: HCT 46.8 % (39.6-50.0); HGB 15.1 g/dL (13.0-17.0); MCH 28.2 pg (27.0-32.0); MCHC 32.3 g/dL (32.0-37.0); MCV 87.5 FL (80.0-97.0); Mean Platelet Volume 9.9 FL (9.5-12.2); NRBC Per 100 WBC 0 X 10*3/uL (0.00-0.01); Platelet Count 245 X 10*3/uL (140-440); RBC 5.35 X 10*6/uL (4.40-5.60); RDW 13.4 % (11.5-14.5)
== END | disposition home or self-care (01) ==
LOC: LABPAT 15:30
PROVIDERS: ATTEND Surgery
DX: Z01.812 Encounter for preprocedural laboratory examination (principal)
CPT/HCPCS: 85027; 86850; 86900; 86901; 93005

== ENCOUNTER 2025-01-04 13:20 | Emergency (ER) | payer OTHER ==
[2025-01-04 13:35] VITALS: BP 141/86; PULSE 87; RESP 22; TEMP 98.2
--- NOTE | 2025-01-04 14:03 | ED ---
Extremity Problem HPI - General Chief complaint: Extremity Problem,Nontraumatic Stated complaint: L leg pain Time Seen by Provider: 01/04/25 14:03 Source: patient, RN notes reviewed Mode of arrival: ambulatory Limitations: no limitations - History of Present Illness Initial comments: 44-year-old male presenting for left lower extremity varicose vein since hernia surgery 3 weeks ago. States he had hernia surgery on December 15 and noticed large varicose vein in the left upper medial leg the day after. States pain has been worsening and his legs have been very swollen. 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 Denies chest pain, shortness of breath, abdominal pain. Abdominal incisions are healing well. Denies blood thinners or history of DVTs. - Related Data Home Medications Medication Instructions Recorded Confirmed Ibuprofen(Unknown Dose) 1 dose PO DIRECTED PRN 12/09/24 12/09/24 Potassium(Unknown Dose) 1 dose PO HS PRN 12/09/24 12/15/24 Previous Rx's Medication Instructions Recorded Acetaminophen Tab [Tylenol] 650 mg PO Q6H #30 tab 12/15/24 Docusate [Colace] 100 mg PO BID #20 capsule 12/15/24 Ibuprofen [Motrin] 600 mg PO Q6HR PRN #40 tab 12/15/24 oxyCODONE HCL [OxyIR] 5 mg PO Q6H PRN 3 Days #10 tab 12/15/24 Allergies Allergy/AdvReac Type Severity Reaction Status Date / Time adhesive Allergy Rash/Hives/tape Verified 01/04/25 13:35 davila Tetanus Vaccines and Toxoid Allergy Rash/Hives Verified 01/04/25 13:35 Review of Systems ROS Statement: Those systems with pertinent positive or pertinent negative responses have been documented in the HPI. ROS Other: All systems not noted in ROS Statement are negative. Past Medical History Past Medical History: Deep Vein Thrombosis (DVT), Hypertension History of Any Multi-Drug Resistant Organisms: None Reported Past Surgical History: No Surgical Hx Reported, Joint Replacement Additional Past Surgical History / Comment(s): vericose vein procedure. Rt shoulder rotator cuff repair and repair/attach broken bone. Past Anesthesia/Blood Transfusion Reactions: Previous Problems w/ Anesthesia, Postoperative Nausea & Vomiting (PONV) Additional Past Anesthesia/Blood Transfusion Reaction / Comment(s): "I came out a little rough the first time I was put under." Past Psychological History: No Psychological Hx Reported Smoking Status: Never smoker - Past Family History Mother Family Medical History: Cancer Additional Family Medical History / Comment(s): Lung Cancer. General Exam Limitations: no limitations General appearance: alert, in no apparent distress Head exam: Present: atraumatic, normocephalic, normal inspection GI/Abdominal exam: Present: soft, normal bowel sounds, other (Well-healing laparoscopic abdominal incisions with no surrounding erythema or drainage). Absent: distended, tenderness, guarding, rebound, rigid Left Hip exam: Present: normal inspection, full ROM. Absent: tenderness, swelling Upper Leg exam: Absent: normal inspection (There is a large, firm, palpable vein present from upper medial left leg to medial knee. No erythema or warmth) Knee exam: Present: normal inspection, full ROM, swelling. Absent: tenderness Lower Leg exam: Present: normal inspection, full ROM, swelling. Absent: tenderness Ankle exam: Present: normal inspection, full ROM, swelling. Absent: tenderness Foot/Toe exam: Present: normal inspection, full ROM, swelling. Absent: tenderness Neurovascular tendon exam: Present: no vascular compromise. Absent: pulse deficit, abnormal cap refill, sensory deficit Neurological exam: Present: alert, oriented X3 Psychiatric exam: Present: normal affect, normal mood Skin exam: Present: warm, dry, intact, normal color. Absent: rash Course Vital Signs 01/04/25 13:30 Temperature 98.2 F Pulse Rate 87 Respiratory 22 Rate Blood Pressure 141/86 O2 Sat by Pulse 98 Oximetry Medical Decision Making - Medical Decision Making Was pt. sent in by a medical professional or institution (, PA, [employer], urgent care, hospital, or retirement...) When possible be specific @ -No Did you speak to anyone other than the patient for history (EMS, parent, family, police, friend...)? What history was obtained from this source @ -No Did you review nursing and triage notes (agree or disagree)? Why? @ -I reviewed and agree with nursing and triage notes Were old charts reviewed (outside hosp., previous admission, EMS record, old EKG, old radiological studies, urgent care reports/EKG's, retirement records)? Report findings @ -No old charts were reviewed Differential Diagnosis (chest pain, altered mental status, abdominal pain women, abdominal pain men, vaginal bleeding, weakness, fever, dyspnea, syncope, headache, dizziness, GI bleed, back pain, seizure, CVA, palpatations, mental health, musculoskeletal)? @ -Differential Musculoskeletal Muscular strain, contusion, ligament sprain, fracture, arthritis, septic arthritis, bursitis, cellulitis, muscle spasm, nerve compression, DVT, arterial occlusion, herpes zoster, electrolyte abnormality, tumor.... This is not meant to be in all inclusive list EKG interpreted by me (3pts min.). @ -None X-rays interpreted by me (1pt min.). @ -None done CT interpreted by me (1pt min.). @ -None done U/S interpreted by me (1pt. min.). @ -[None ultrasound left lower extremity reveals no DVT, superficial varicose vein thrombosis What testing was considered but not performed or refused? (CT, X-rays, U/S, la bs)? Why? @ -None What meds were considered but not given or refused? Why? @ -None Did you discuss the management of the patient with other professionals (professionals i.e. , PA, [employer] WORKER, lab, RT, psych nurse, social work specialist, network contract manager, teacher, ground defence officer, manager case management)? Give summary @ -No Was smoking cessation discussed for >3mins.? @ -No Was critical care preformed (if so, how long)? @ -No Were there social determinants of health that impacted care today? How? (Homelessness, low income, unemployed, alcoholism, drug addiction, transportation, low edu. Level, literacy, decrease access to med. care, longterm, rehab)? @ -No Was there de-escalation of care discussed even if they declined (Discuss DNR or withdrawal of care, Hospice)? DNR status @ -No What co-morbidities impacted this encounter? (DM, HTN, Smoking, COPD, CAD, Cancer, CVA, ARF, Chemo, Hep., AIDS, mental health diagnosis, sleep apnea, morbid obesity)? @ -None Was patient admitted / discharged? Hospital course, mention meds given and route, prescriptions, significant lab abnormalities, going to OR and other pertinent info. @ -Discharge. 44-year-old male presenting for left lower extremity varicose vein x 3 weeks status post hernia surgery. Neurovascularly intact. There is a large, firm, palpable vein present in medial upper leg. No sign of bacterial infection. Ultrasound reveals no DVT, superficial varicose vein thrombosis. Discussed results with patient. Advised to follow-up with PCP. Advised to use compression socks and elevate left leg. Appropriate return precautions discussed. Case was discussed with my ED attending Dr. Powers. Undiagnosed new problem with uncertain prognosis? @ -No Drug Therapy requiring intensive monitoring for toxicity (Heparin, Nitro, Insulin, Cardizem)? @ -No Were any procedures done? @ -No Diagnosis/symptom? @ -Varicose vein thrombosis of left thigh Acute, or Chronic, or Acute on Chronic? @ -Acute Uncomplicated (without systemic symptoms) or Complicated (systemic symptoms)? @ -Uncomplicated Side effects of treatment? @ -No Exacerbation, Progression, or Severe Exacerbation? @ -No Poses a threat to life or bodily function? How? (Chest pain, [place], [place], pneumonia, PE, COPD, DKA, ARF, appy, cholecystitis, CVA, Diverticulitis, Homicidal, Suicidal, threat to staff... and all critical care pts) @ -No Disposition Clinical Impression: Varicose veins of left thigh Disposition: HOME SELF-CARE Condition: Stable Instructions (If sedation given, give patient instructions): Venous Insufficiency (DC) Additional Instructions: Follow-up with your pain specialist and PCP. You should be able to find full- length compression socks on [employer] with no prescription needed. Please return to the Emergency Department if symptoms worsen or any other concerns. Is patient prescribed a controlled substance at d/c from ED?: No Referrals: Marc Dyer DO [Primary Care Provider] - 1-2 days Time of Disposition: 16:12
--- NOTE | 2025-01-04 14:44 | US ---
EXAMINATION TYPE: US venous doppler duplex LE LT DATE OF EXAM: 01/04/2025 2:33 PM COMPARISON: NONE CLINICAL INDICATION: Male, 44 years old with history of left lower extremity swlling s/p surgery; Nikky n varicose veins. Had GSV clotted off by vascular surgeon. , Pain TECHNIQUE: The lower extremity deep venous system is examined utilizing real time linear array sonog adriana with graded compression, color doppler sonography, and spectral doppler. SIDE PERFORMED: Left FINDINGS: VESSELS IMAGED: Common Femoral Vein Deep Femoral Vein Greater Saphenous Vein * Femoral Vein Popliteal Vein Small Saphenous Vein * Proximal Calf Veins (* superficial vessels) Left Leg: Negative for DVT, Color Doppler imaging shows patency of the vessels. Spectral waveforms a re within normal limits. Thrombus visualized in left thigh superficial varicose veins. IMPRESSION: 1. No ultrasound evidence for deep venous thrombosis. 2. Superficial varicose vein thrombosis. [facility], , 01/04/2025 2:42 PM
== END 2025-01-04 16:21 | disposition home or self-care (01) ==
LOC: EC 13:20
DX: I83.812 Varicose veins of left lower extremity with pain (principal); Z88.5 Allergy status to narcotic agent; Z88.7 Allergy status to serum and vaccine
CPT/HCPCS: 99283